=== PATIENT | male | born 1995 | race Caucasian/White ===

== ENCOUNTER 2021-03-16 15:29 | Emergency (ER) | payer SELFPAY ==
[2021-03-16] MEDS ORDERED: Sodium Chloride 0.9% 10 ML Syringe FLUSH PRN (16:06)
--- NOTE | 2021-03-16 16:18 | EDM.PDOC ---
ED HPI GENERAL MEDICAL PROBLEM - General Chief Complaint: Cardiovascular Problem Stated Complaint: CHEST PAIN/SOB Time Seen by Provider: 03/16/21 16:03 Source of Information: Reports: Patient, RN Notes Reviewed History Limitations: Reports: No Limitations - History of Present Illness INITIAL COMMENTS - FREE TEXT/NARRATIVE: Patient is a 26-year-old male who presents to the ER for evaluation of his chest discomfort. States this is worsened over the last 3 days. Does state that he has a history of pericarditis roughly 6 months ago that he was treated with ibuprofen and some other anti-inflammatory. He did have an echo as well, and this was normal. Patient states that he returned home to [place] the Tuesday before , been having some issues with chest discomfort, heaviness, when he lays down chest feels even more heavy. He took 1 dose ibuprofen but notes that this did not seem to help much. States that he did fly home, and returned home yesterday. Notes that he has not been tested for COVID-19 recently. He has been vaccinated for COVID-19. No fevers or chills, cough, he has some mild shortness of breath with exertion, some chest heaviness, but no nausea/vomiting/diarrhea. States he has a past medical history of asthma but has not had issues with this since he was a young child. Chest Pain Score (Numeric/FACES): 3 - Related Data Allergies Allergy/AdvReac Type Severity Reaction Status Date / Time No Known Allergies Allergy Verified 03/16/21 15:55 Home Meds: Home Meds Ibuprofen 600 mg PO Q6H #30 tablet 03/16/21 [Rx] Past Medical History Cardiovascular History: Reports: Other (See Below) Other Cardiovascular History: Pericarditis Respiratory History: Reports: Asthma ED ROS GENERAL - Review of Systems Review Of Systems: Comprehensive ROS is negative, except as noted in HPI. ED EXAM, GENERAL - Physical Exam Exam: See Below Exam Limited By: No Limitations General Appearance: Alert, WD/WN, No Apparent Distress Respiratory/Chest: No Respiratory Distress, Lungs Clear, Normal Breath Sounds, No Accessory Muscle Use, Chest Non-Tender Cardiovascular: Normal Peripheral Pulses, Regular Rate, Rhythm, No Edema GI/Abdominal: Normal Bowel Sounds, Soft, Non-Tender, No Distention, No Mass Extremities: Normal Inspection, Normal Capillary Refill Neurological: Alert, Oriented, Normal Cognition, No Motor/Sensory Deficits Psychiatric: Normal Affect, Normal Mood Skin Exam: Warm, Dry, Intact, Normal Color, No Rash #1 Interpretation EKG Date: 03/16/21 Time: 15:55 Rhythm: NSR Rate (Beats/Min): 91 [place]: Normal P-Wave: Present QRS: Normal ST-T: Normal QT: Normal Comparison: NA - No Prior EKG EKG Interpretation Comments: No obvious ischemia or acute ST changes noted, reviewed by myself and Dr. Ding. There was quite a bit of artifact on EKG, but the alarm security or surveillance monitor shows no other major signs of concern. There are very nonspecific ST changes noted on the EKG. Course - Vital Signs Last Recorded V/S: Last Vital Signs Temp 96.9 F 03/16/21 15:52 Pulse 87 03/16/21 18:01 Resp 16 03/16/21 18:01 BP 153/99 H 03/16/21 18:01 Pulse Ox 98 03/16/21 18:01 - Orders/Labs/Meds Orders: Active Orders 24 hr Category Date Time Status Peripheral IV Care [RC] . DIRECTED Care 03/16/21 16:06 Active Sodium Chloride 0.9% [Saline Flush] Med 03/16/21 16:06 Active 10 ml FLUSH ASDIRECTED PRN Peripheral IV Insertion Adult [OM.PC] Routine Oth 03/16/21 16:06 Ordered Medication Orders Sodium Chloride (Sodium Chloride 0.9% 10 Ml Syringe) 10 ml FLUSH ASDIRECTED PRN PRN Reason: Keep Vein Open Last Admin: 03/16/21 17:04 Dose: 10 ml Documented by: VINOD Labs: Laboratory Tests 03/16/21 03/16/21 03/16/21 Range/Units 16:20 16:20 16:20 WBC 7.44 (4.23-9.07) K/mm3 RBC 4.75 (4.63-6.08) M/mm3 Hgb 14.0 (13.7-17.5) gm/dl Hct 42.4 (40.1-51.0) % MCV 89.3 (79.0-92.2) fl MCH 29.5 (25.7-32.2) pg MCHC 33.0 (32.2-35.5) g/dl RDW Std Deviation 41.8 (35.1-43.9) fL Plt Count 240 (163-337) K/mm3 MPV 9.5 (9.4-12.3) fl Neut % (Auto) 59.8 (34.0-67.9) % Lymph % (Auto) 25.1 (21.8-53.1) % [place] % (Auto) 9.1 (5.3-12.2) % Eos % (Auto) 4.7 (0.8-7.0) Baso % (Auto) 0.9 (0.1-1.2) % Neut # (Auto) 4.44 (1.78-5.38) K/mm3 Lymph # (Auto) 1.87 (1.32-3.57) K/mm3 [place] # (Auto) 0.68 (0.30-0.82) K/mm3 Eos # (Auto) 0.35 (0.04-0.54) K/mm3 Baso # (Auto) 0.07 (0.01-0.08) K/mm3 D-Dimer, Quantitative 0.70 H (0.19-0.50) mg/L Sodium 137 (136-145) mEq/L Potassium 3.9 (3.5-5.1) mEq/L Chloride 102 (98-107) mEq/L Carbon Dioxide 29 (21-32) mEq/L Anion Gap 9.9 (5-15) BUN 14 (7-18) mg/dL Creatinine 0.9 (0.7-1.3) mg/dL Est Cr Clr Drug Dosing 126.56 mL/min Estimated GFR (MDRD) > 60 (>60) mL/min BUN/Creatinine Ratio 15.6 (14-18) Glucose 92 (70-99) mg/dL Calcium 9.4 (8.5-10.1) mg/dL Total Bilirubin 0.4 (0.2-1.0) mg/dL AST 16 (15-37) U/L ALT 33 (16-63) U/L Alkaline Phosphatase 74 (46-116) U/L Troponin I < 0.017 (0.00-0.056) ng/mL C-Reactive Protein 2.9 H* (<1.0) mg/dL Total Protein 7.4 (6.4-8.2) g/dl Albumin 3.7 (3.4-5.0) g/dl Globulin 3.7 gm/dL Albumin/Globulin Ratio 1.0 (1-2) Influenza Type A RNA (NEGATIVE) Influenza Type B RNA (NEGATIVE) SARS-CoV-2 RNA (QASIM) (NEGATIVE) 03/16/21 Range/Units 17:50 WBC (4.23-9.07) K/mm3 RBC (4.63-6.08) M/mm3 Hgb (13.7-17.5) gm/dl Hct (40.1-51.0) % MCV (79.0-92.2) fl MCH (25.7-32.2) pg MCHC (32.2-35.5) g/dl RDW Std Deviation (35.1-43.9) fL Plt Count (163-337) K/mm3 MPV (9.4-12.3) fl Neut % (Auto) (34.0-67.9) % Lymph % (Auto) (21.8-53.1) % [place] % (Auto) (5.3-12.2) % Eos % (Auto) (0.8-7.0) Baso % (Auto) (0.1-1.2) % Neut # (Auto) (1.78-5.38) K/mm3 Lymph # (Auto) (1.32-3.57) K/mm3 [place] # (Auto) (0.30-0.82) K/mm3 Eos # (Auto) (0.04-0.54) K/mm3 Baso # (Auto) (0.01-0.08) K/mm3 D-Dimer, Quantitative (0.19-0.50) mg/L Sodium (136-145) mEq/L Potassium (3.5-5.1) mEq/L Chloride (98-107) mEq/L Carbon Dioxide (21-32) mEq/L Anion Gap (5-15) BUN (7-18) mg/dL Creatinine (0.7-1.3) mg/dL Est Cr Clr Drug Dosing mL/min Estimated GFR (MDRD) (>60) mL/min BUN/Creatinine Ratio (14-18) Glucose (70-99) mg/dL Calcium (8.5-10.1) mg/dL Total Bilirubin (0.2-1.0) mg/dL AST (15-37) U/L ALT (16-63) U/L Alkaline Phosphatase (46-116) U/L Troponin I (0.00-0.056) ng/mL C-Reactive Protein (<1.0) mg/dL Total Protein (6.4-8.2) g/dl Albumin (3.4-5.0) g/dl Globulin gm/dL Albumin/Globulin Ratio (1-2) Influenza Type A RNA Negative (NEGATIVE) Influenza Type B RNA Negative (NEGATIVE) SARS-CoV-2 RNA (QASIM) Negative (NEGATIVE) Meds: Medications Generic Name Dose Route Start Last Admin Trade Name Freq PRN Reason Stop Dose Admin Sodium Chloride 10 ml 03/16/21 16:06 03/16/21 17:04 Sodium Chloride 0.9% 10 Ml Syringe FLUSH 10 ml ASDIRECTED PRN Administration Keep Vein Open Discontinued Medications Generic Name Dose Route Start Last Admin Trade Name Freq PRN Reason Stop Dose Admin Ketorolac Tromethamine 30 mg 03/16/21 17:07 03/16/21 18:00 Ketorolac 30 Mg/Ml Sdv IVPUSH 03/16/21 17:08 30 mg ONETIME ONE Administration - Re-Assessments/Exams Free Text/Narrative Re-Assessment/Exam: 03/16/21 16:21 Patient presents to the ER for his chest heaviness. We will go ahead and get a EKG and some basic labs for ongoing management. 03/16/21 17:58 CBC and CMP are unremarkable, CRP is elevated, D-dimer slightly elevated at 0.7. Unfortunately the initial Covid screen was missed; so has been just performed so we will have to wait about an hour for this to result. I will go over the results with the patient to see if he would like to go forward with a CTA or wait for the Covid results and then move forward with a CTA due to the elevated D-dimer. 03/16/21 18:52 Patient's Covid screen was negative, I did go over the results of his labs with the patient and he would like to go forward with a CT of his chest just to make sure there is no blood clot. So this test has been ordered. 03/16/21 19:38 CT demonstrated no sign of acute pulmonary embolism within the main or segmental branches however small subsegmental pulmonary emboli could easily be missed due to suboptimal technique. Radiologist also did demonstrate mild thickening of the pericardium around the heart difficult to exclude mild pericardial fibrosis. Patient has had a normal echocardiogram within the last 6months. But I will have him follow-up with his regular provider for ongoing management. For today's purposes we will treat him for suspected pericarditis and have him take ibuprofen 600 mg for the next few days and follow-up with provider in this area if he is not going to be home anytime soon. Departure - Departure Time of Disposition: 19:39 Disposition: Home, Self-Care 01 Condition: Good Clinical Impression: Pericarditis Qualifiers: Pericarditis type: idiopathic Chronicity: acute Qualified Code(s): I30.0 - Acute nonspecific idiopathic pericarditis Prescriptions: Ibuprofen 600 mg PO Q6H #30 tablet Instructions: Pericarditis Referrals: PCP,None [Ordering Only Provider] - Forms: ED Department Discharge Additional Instructions: You were evaluated in this ER for your ongoing chest pressure/discomfort. A multitude of labs and imaging were performed at today's visit, you do not have a pulmonary embolus as identified by the chest CT however there is some pericardial thickening appreciated. It is likely that you are suffering from pericarditis which is an inflammation of the sac around the heart. Management of this will be anti-inflammatories you will take 1 tablet of the prescribed ibuprofen every 6 hours for ongoing management. This medication was electronically sent to the [place] pharmacy located in the [facility] grocery store. Due to you having a normal echocardiogram within the last 6 months, you should not need to worry about any sort of decreased cardiac function; however I would stress that you follow-up with your regular care provider or steam table worker for ongoing management if things seem to be worsening and not getting much better. If you do not have a primary care provider already, I recommend that you follow- up with a provider in our clinic, any family practice provider would be able to provide you with the services. Our clinic telephone number [phone], please call in the morning to obtain an appointment with the provider, for follow-up of your symptoms that prompted your ER visit today. Dr. Sanabria, Dr. Beau Bran or Dr. Tony Bran would be good options. Do not hesitate to return to the ER at any time if symptoms change or worsen. Thank you for allowing and choosing us to be involved in your healthcare needs. Sepsis Event Note (ED) - Evaluation Sepsis Screening Result: No Definite Risk - Focused Exam Vital Signs: Vital Signs Temp Pulse Resp BP Pulse Ox 03/16/21 18:01 87 16 153/99 H 98 03/16/21 17:09 100 19 142/80 H 96 03/16/21 15:52 96.9 F 92 18 176/104 H 97 - My Orders Last 24 Hours: My Active Orders 03/16/21 16:06 Peripheral IV Care [RC] . DIRECTED Sodium Chloride 0.9% [Saline Flush] 10 ml FLUSH ASDIRECTED PRN Peripheral IV Insertion Adult [OM.PC] Routine - Assessment/Plan Last 24 Hours: My Active Orders 03/16/21 16:06 Peripheral IV Care [RC] . DIRECTED Sodium Chloride 0.9% [Saline Flush] 10 ml FLUSH ASDIRECTED PRN Peripheral IV Insertion Adult [OM.PC] Routine
[2021-03-16] MEDS ORDERED: Ketorolac 30 MG/ML SDV IVPUSH ONE (17:07)
[2021-03-16 18:33] LABS: CORONAVIRUS COVID-19 NAA NEGATIVE (NEGATIVE)
--- NOTE | 2021-03-16 19:33 | CT ---
CT chest Technique: Multiple axial sections through the chest were obtained. Intravenous contrast was utilized. Study was performed as a pulmonary angiogram protocol. Comparison: No prior chest imaging is available. Findings: Pulmonary arteries are not optimally opacified. No filling defects are seen within the main or segmental branches. Smaller subsegmental pulmonary emboli could easily be missed. Thoracic aorta shows no aneurysm. Small amount of normal thymic tissue is seen. There is mild thickening of the pericardium and difficult to exclude slight pericardial fibrosis. Please correlate with patient's cardiac function. Visualized upper abdominal structures show nothing acute. Lung window settings were obtained. Small nodule is noted in a subpleural location measuring 3 mm within the right middle lobe. This is most likely incidental. Lungs otherwise are clear with no acute parenchymal change. No pleural effusions or pneumothorax are seen. Bone window settings were reviewed which shows no acute osseous finding. Impression: 1. Suboptimal opacification of the pulmonary arteries. No findings of pulmonary embolism is seen within the main or segmental branches. Smaller subsegmental pulmonary emboli could easily be missed. 2. Mild thickening of the pericardium around the heart and difficult to exclude mild pericardial fibrosis. Please correlate that the patient has normal cardiac function. If any further clinical questions are raised, echocardiogram could be considered. 3. Other finding believed to be incidental as noted above. Diagnostic code #3
== END 2021-03-16 20:00 | disposition home or self-care (01) ==
LOC: JD.ED 15:29
DX: I30.0 Acute nonspecific idiopathic pericarditis (principal); J45.909 Unspecified asthma, uncomplicated; Z20.822 Contact with and (suspected) exposure to COVID-19
CPT/HCPCS: 0240U; 36415; 71275; 80053; 84484; 85025; 85379; 86140; 93005; 96374; 99285; J1885